=== PATIENT | female | born 1960 | race Caucasian/White ===

== ENCOUNTER → 2016-08-01 | Outpatient (CLI) | payer OTHER ==
[~2016-08-01] MED LIST: CALCIUM 600 +1 EAC2 PO; CENTRUM SILVER PO; FISH OIL 1,0001 EAC1; GARLIC OIL500 MG; GELATIN PO; VITAMIN D1000 UNI1 PO; [UNRECOGNIZED DRUG - OTHER] PO
--- NOTE | ~2016-08-01 | MY11 ---
[facility] A [facility] RADIOLOGY TEXT RESULTS PATIENT: RONALDO LANZA LOCATION: [facility] : 56 UNIT #: [id number] AGE: [address]: Norma Blake APRN SEX: F ORDER DR: [id number] [facility]. [place], [place] [address] [id number] O MR#: [id number] Acc #: [id number] NAME: RONALDO LANZA : 1960 SEX: F STUDY DATE/TIME: 08/01/2016 16:26 UNIT: [facility] ROOM: STUDY DESCRIPTION: MY Mammogram Screening Dig Reggie Attending Physician: Norma Blake Ordering Physician: Norma Blake A.P.R.N. Primary Care Physician: Norma Blake MEDICAL IMAGING REPORT This report is preliminary unless electronic signature is present EXAM Bilateral digital screening mammogram with CAD. INDICATION Breast cancer screening. 56-year-old asymptomatic female reports a paternal aunt with breast cancer. COMPARISON 07/28/2015, 07/04/2014, 07/05/2013, 07/05/2012, 07/07/2011, 06/29/2010 and 06/11/2009 FINDINGS The breast tissue is heterogeneously dense, which could obscure detection of small masses. No suspicious findings are seen. IMPRESSION No mammographic evidence of malignancy. Annual clinical breast exam is recommended. Given the patient's breast density, she would likely benefit from annual screening breast tomosynthesis given increased sensitivity and diminished false positive rate as compared to conventional digital mammography. Patients over the age of 40 are entered into a reminder system with target due date for the next mammogram. A result letter will be sent to the patient. BIRADS Final Assessment Category 1: NEGATIVE Dictated by... [facility] RADIOLOGY TEXT RESULTS PATIENT: RONALDO LANZA LOCATION: [facility] : 56 UNIT #: [id number] AGE: [address]: Norma Blake APRN SEX: F ORDER DR: Domenico Arias M.D. THIS IS AN ELECTRONICALLY VERIFIED REPORT Domenico Arias M.D. at 08/02/2016 5:29 PM BLM/to TD: 08/01/2016 21:32 JOB #: [id number] MEDICAL IMAGING REPORT Page 1 of 1 COPY
== END | disposition home or self-care (01) ==
LOC: CWCC 16:07
DX: Z12.31 Encounter for screening mammogram for malignant neoplasm of breast (principal); Z80.3 Family history of malignant neoplasm of breast
CPT/HCPCS: G0202

== ENCOUNTER → 2016-08-23 | Outpatient (CLI) | payer OTHER | END | disposition home or self-care (01) | LOC: CSSDAY 15:20 | PROVIDERS: Orthopaedic Surgery Orthopaedic Surgery of the Spine | DX: M81.0 Age-related osteoporosis without current pathological fracture (principal); Z79.899 Other long term (current) drug therapy | CPT/HCPCS: 36415; 82306; 82310; 96372; J0897 ==